=== PATIENT | male | born 1980 | race Caucasian/White ===

== ENCOUNTER 2017-06-24 10:13 | Inpatient (IN) ==
--- NOTE | 2017-06-23 21:06 | Discharge Summary ---
<Pau Byers - Last Filed: 06/23/17 21:03> Date of Encounter: 06/23/17 - Discharge Diagnosis (1) Arthritis of right hip Priority: Primary Status: Acute (2) Status post total hip replacement, right Priority: Primary Status: Acute (3) Hepatitis C Priority: Secondary Status: Chronic Qualifiers: Viral hepatitis chronicity: unspecified Hepatic coma status: without hepatic coma Qualified Code(s): B19.20 - Unspecified viral hepatitis C without hepatic coma (4) Tobacco use Priority: Secondary Status: Chronic (5) ADHD Priority: Secondary Status: Chronic Qualifiers: Attention deficit-hyperactivity disorder type: unspecified Qualified Code(s ): F90.9 - Attention-deficit hyperactivity disorder, unspecified type - Discharge Medications Prescriptions: Aspirin Enteric Coated [Aspirin EC] 325 mg PO DAILY #21 tablet. OxyCODONE Immed Rel [Roxicodone 5 MG] 5 mg PO Q6HR PRN #28 tablet PRN Reason: Pain Home Medications: Aspirin Enteric Coated [Aspirin EC] 325 mg PO DAILY #21 tablet. 06/23/17 [Rx] OxyCODONE Immed Rel [Roxicodone 5 MG] 5 mg PO Q6HR PRN #28 tablet 06/23/17 [Rx] Acetaminophen [Tylenol] 500 mg PO Q6HR PRN 06/24/17 [History] Aspirin/Acetaminophen/Caffeine [Excedrin Extra Strength Caplet] 1 tab PO Q6H PRN 06/24/17 [History] Allergies/Adverse Reactions: 3 Allergy/AdvReac Type Severity Reaction Status Date / Time mirtazapine [From Remeron] AdvReac Confusion Verified 06/24/17 10:59 Primary care physician: PCP NONE - Discharge Instructions Follow Up With: NONE,PCP [Primary Care Provider] - - Hospital Course Hospital course: Mr. Srinivasan is a 36 year old male - Time Spent with Patient Total time spent providing and/or coordinating discharge services: <Kirk Medel - Last Filed: 06/24/17 11:41> Date of Encounter: 06/24/17 - Discharge Diagnosis (1) Arthritis of right hip Priority: Primary Status: Chronic (2) Status post total hip replacement, right Priority: Primary Status: Acute (3) Hepatitis C Priority: Secondary Status: Chronic Qualifiers: Viral hepatitis chronicity: unspecified Hepatic coma status: without hepatic coma Qualified Code(s): B19.20 - Unspecified viral hepatitis C without hepatic coma (4) Tobacco use Priority: Secondary Status: Chronic (5) ADHD Priority: Secondary Status: Chronic Qualifiers: Attention deficit-hyperactivity disorder type: unspecified Qualified Code(s ): F90.9 - Attention-deficit hyperactivity disorder, unspecified type Primary care physician: PCP NONE - Hospital Course Hospital course: Mr. Srinivasan is a 36 year old male - Time Spent with Patient Total time spent providing and/or coordinating discharge services:
[2017-06-24] MEDS ORDERED: Lidocaine -MPF 1% 2 ML VIAL ID ONE (10:29)
[2017-06-24] MEDS ORDERED: Albuterol 2.5 MG/3 ML NEBULIZER IH ONE (10:29)
[2017-06-24] MEDS ORDERED: CeFAZolin Syr 2,000MG/20 ML 2,000 MG/20 ML SYRINGE IVPB ONE (10:29)
[2017-06-24] MEDS ORDERED: Ringers Solution, Lactated 1,000 ML IVC SCH ×2 (10:30→14:39)
[2017-06-24] MEDS ORDERED: Ethanol\\Acetic Acid\\Na Ace\\Ben 1,000 ML IRRIG.SOLN IR ONE (10:40)
[2017-06-24] MEDS ORDERED: Famotidine 20 MG/2 ML VIAL IVP ONE (10:50)
[2017-06-24] MEDS ORDERED: Gabapentin 300 MG CAPSULE PO ONE (10:51)
--- NOTE | 2017-06-24 10:54 | Anesthesia Evaluation PreOp ---
Date of Encounter: 06/24/17 Time of Encounter: 11:00 - Past History Planned Operation: Rt THR Cardiac History: Denies any Significant Hx Pulmonary History: Smoker RECRUITMENT COORDINATOR History: Denies Any Significant HX Other Medical History: GERD, Other (Rheumatoid Arthritis) Anesthesia History: No Prior Anesthetic Complications Alcohol Use: none Drug use: none Medications and Allergies Meloxicam 7.5 mg PO BID PRN #30 tablet 06/06/17 [Rx] Aspirin Enteric Coated [Aspirin EC] 325 mg PO DAILY #21 tablet. 06/23/17 [Rx] OxyCODONE Immed Rel [Roxicodone 5 MG] 5 mg PO Q6HR PRN #28 tablet 06/23/17 [Rx] 3 Allergy/AdvReac Type Severity Reaction Status Date / Time mirtazapine [From Remeron] AdvReac Confusion Verified 06/13/17 09:56 - Meds/Allergy Pre-op Review Medications Reviewed: Yes Allergies Reviewed: Yes Beta Blockers on Current Med List: No Anesthesia Results - Labs Laboratory Tests 06/13/17 06/13/17 10:20 10:20 Hgb 16.6 Hct 48.3 Plt Count 270 Sodium 138 Potassium 4.9 H BUN 14 Creatinine 0.85 - Imaging EKG: report reviewed Anesthesia Exam O2 Sat Height 1.73 m Height 1.73 m Height 1.73 m Weight 61.689 kg Weight 61.689 kg Weight 61.689 kg O2 Sat by Pulse Oximetry 99 O2 Sat by Pulse Oximetry 99 Vital Signs Temp Pulse Resp BP Pulse Ox 98.4 F 60 18 120/72 99 06/24/17 10:35 06/24/17 10:35 06/24/17 10:35 06/24/17 10:35 06/24/17 10:35 Height: 5'8 Weight: 136 lbs NPO (# of Hours): MN Pain Scale: 0 - HEENT Pupil (Motor): Pupils equal, EOMI Mallampati: II Teeth: Edentulous Oral Opening: Greater than 3 - RECRUITMENT COORDINATOR LOC: Oriented RECRUITMENT COORDINATOR Motor: Normal RUE, Normal LUE, Normal RLE, Normal LLE, Normal Face RECRUITMENT COORDINATOR Sensory: Normal: RUE, LUE, RLE, LLE, Face - Cardiac Rhythm: Regular Murmur: None JVD: No Carotid Bruit: No - Pulmonary Breath Sounds: bilateral Clear Respiratory Effort: Symmetrical Anesthesia Assess/Plan ASA Score: 2 Modified Gray Scale for Level of Consciousness: Cooperative, oriented, and tranquil Anesthetic Plan: General Monitoring Plan: Standard Monitors Recovery Plan: PACU (Discussed GA, possible RA, agrees to proceed)
--- NOTE | 2017-06-24 11:40 | History & Physical Report ---
Date of Encounter: 06/24/17 Time of Encounter: 11:40 24 Hour HP Update - Instructions Instructions: If the History and Physical is less than 30 days old and was completed prior to A.M. admission and or procedure and has NOT been updated on calendar day of procedure please complete this update prior to performing procedure. - Update Patient reports changes in Medical Condition: No Changes in examination, assessment, or condition: No Changes in Medication: No Preop tests/diagnostics Reviewed: Yes Surgery Remains Indicated: Yes Consent for Planned Operative Procedure(s) Verified: Yes - Pre-Operative Checklist Preoperative Checklist Indicated: No Prophylactic Antibiotic Ordered: Yes Is VTE Prophylaxis Indicated?: Yes
[2017-06-24] MEDS ORDERED: Ondansetron 4 MG/2 ML VIAL IVP PRN ×2 (12:27→14:39)
[2017-06-24] MEDS ORDERED: Lidocaine -MPF 2% 2 ML VIAL ONE (12:29)
[2017-06-24] MEDS ORDERED: *HR* HYDROmorphone 2 MG/ML SYRINGE ONE (12:29)
[2017-06-24] MEDS ORDERED: *HR* FentaNYL (PF) 100 MCG/2 ML VIAL ONE (12:29)
[2017-06-24] MEDS ORDERED: Dexamethasone 4 MG/ML VIAL ONE (12:29)
[2017-06-24] MEDS ORDERED: Lidocaine -MPF 4% 5 ML AMPUL ONE (12:29)
[2017-06-24] MEDS ORDERED: *HR* Midazolam HCl 2 MG/2 ML VIAL ONE ×2 (12:29)
[2017-06-24] MEDS ORDERED: *HR* Propofol 200 MG/20 ML VIAL IVP ONE (12:29)
--- NOTE | 2017-06-24 13:00 | Orthopedic Operative Note ---
Date of procedure: 06/24/17 Pre-op diagnosis: Right hip arthritis Post-op diagnosis: same Procedure: Procedure: Right Total Hip Replacment robotic-assisted Estimated blood loss: 200 cc Hardware: Metal and polyethylene replacement. Jay DM Cup: 52 cup 7 Femoral size stem Head: +12 head with Anita Procedural Notes: Grade 4 arthritic changes femoral head acetabular socket, procedure performed with robotic assistance. Operative procedure: The patient was brought to the operating room and placed on the operating room table. After general anesthesia was administered the patient was placed in the lateral decubitus position with the operative leg up. All pressure points were padded appropriately and the head was stabilized in the neutral position. The operative extremity was prepped and draped in the sterile surgical fashion patient received IV antibiotic prior to skin incision. 3 Steinmann pins were placed in the iliac crest 3 cm proximal to the anterior superior iliac spine this was for the robotic-assisted sensor. This was done through a small 2 cm incision. A standard posterior approach is made to the operative hip, the incision was made through the skin and subcutaneous tissue hemostasis was obtained with Bovie cautery. Using careful sharp dissection the fascia was identified and incised exposing the external rotators. The femoral checkpoint was placed leg length was measured at this time utilizing robotic assistance 9 mm shorter right compared to left. The external rotators were released off the greater trochanter and tagged with #2 FiberWire suture. The capsule was T'd open and the hip was brought into internal rotation. Patient noted to have grade 4 arthritic changes femoral head. The femoral neck cut was made at the appropriate level roughly 10 proximal to the lesser trochanter aced on preoperative templating. An anterior capsulotomy was performed for the anterior retractor. Soft tissues removed from the acetabulum. Patient noted to have grade 4 arthritic changes acetabulum. The acetabulum checkpoint was placed confirmed. The acetabulum was then mapped with robotic assistance. Based on the preoperative plan the acetabulum was reamed in one step with a 52 reamer. The 52 acetabulum was impacted with robotic assistance and 40 degrees of abduction and 11 degrees of anteversion. The hip was brought back in to internal rotation and prepared with the weigh box tender followed by the canal finder followed by the reaming process to a size 7 broaching process in 20 degrees anteversion. It was broached up to the appropriate size 7. Trial reduction revealed leg lengths close to normal. The femoral implant was impacted in place in 20 degrees of anteversion. Trial reduction found the hip to be stable with 12 head and Anita. The trials were removed and the real implants were impacted in place. The hip was reduced, patient had robotic confirmed leg length of 8mm than the contralateral side. The hip had excellent stability with forward flexion to 90 degrees adduction of 30 degrees and internal rotation of 60 degrees. The hip had no shuck. The hips after 2 minutes with a Betadine saline solution. It was irrigated out with 2 L of pulse irrigation. The checkpoints were removed, Steinmann pins were removed. The pain incision and the hip were closed by the PA. The deep tissue was irrigated and closed deep with #1 PDS suture superficially with 0 PDS suture and skin was closed with Dermabond and zip tie. The patient was placed in a sterile dressing and abduction pillow. The patient was extubated and transferred to the recovery room in stable condition. Anesthesia: SANTHOSH Surgeon: Kirk Medel Silo Man: Nedra Owens Condition: stable Disposition: PACU
[2017-06-24] MEDS ORDERED: Ketorolac 30 MG/ML VIAL ONE (13:26)
[2017-06-24] MEDS: *HR* HYDROmorphone (PF) 1 MG/ML SYRINGE IVP PRN ×6 (13:36→14:09)
--- NOTE | 2017-06-24 14:28 | Anesthesia Evaluation Post Op ---
Date of Encounter: 06/24/17 Time of Encounter: 14:27 - Vital Signs Vital Signs: Selected Entries 06/24/17 14:20 Temperature 98.2 F Pulse Rate 52 Respiratory Rate 14 Blood Pressure 140/78 O2 Sat by Pulse Oximetry 96 - Lungs Lungs: Clear Ascult./Percussion - Airway Airway: Non-obstructed - Cardiovascular Regular Rate - Mental Status Mental Status: Alert & Oriented, Answers Appropriately - Pain Pain Scale: 6 (has had 5mg dilaudid) Pain Scale used: Numeric (1 - 10) - Nausea Vomiting Nausea Vomiting: Not Present - Hydration Hydration: Ice chips, Has not voided - Discharge PostOp Status: Transfer Patient to floor
[2017-06-24 14:30] LABS: Hematocrit 42.5 % (37.5-50.1); Hemoglobin 14.9 g/dL (12.9-16.9)
[2017-06-24] MEDS ORDERED: Sennosides 8.6 MG TABLET PO PRN (14:39)
[2017-06-24] MEDS ORDERED: MOM Conc 10 ML UD.LIQ PO PRN (14:39)
[2017-06-24] MEDS ORDERED: *HR* HYDROmorphone (PF) 1 MG/ML SYRINGE IVP PRN (14:39)
[2017-06-24] MEDS ORDERED: *HR* OxyCODONE Immed Rel 5 MG TABLET PO PRN ×2 (14:39)
[2017-06-24] MEDS ORDERED: Temazepam 15 MG CAPSULE PO PRN (14:39)
[2017-06-24] MEDS ORDERED: Naloxone 0.4 MG/ML INJ IVP PRN (14:39)
[2017-06-24] MEDS ORDERED: Nicotine 21 MG PATCH.TD24 TD SCH (16:00)
[2017-06-24] MEDS ORDERED: Ascorbic Acid 500 MG TABLET PO SCH (17:00)
[2017-06-24] MEDS ORDERED: ceFAZolin 2,000 MG in Water for inj. (sterile) 20 ML IVP ONE (17:07)
[2017-06-24] MEDS ORDERED: *HR* Enoxaparin 30 MG/0.3 ML SYRINGE SQ SCH ×2 (18:00)
[2017-06-24] MEDS ORDERED: CeFAZolin Premix DUPLEX 2,000 MG/50 ML BAG IVPB ONE (18:00)
[2017-06-24 19:49] VITALS: BP 122/75
[2017-06-25] MEDS ORDERED: Multivit/Ca/Min/Fe/FA 1 TAB TABLET PO SCH (09:00)
== END 2017-06-24 19:20 | disposition home or self-care (01) | DRG 301 ==
LOC: SAMDAY 10:13 → 3NENU 14:46
PROVIDERS: ADMIT Orthopaedic Surgery; ATTEND Orthopaedic Surgery